=== PATIENT | female | born 1995 | race Hispanic/Latino ===

== ENCOUNTER 2017-01-30 21:22 | Emergency (ER) | payer SELFPAY ==
[~2017-01-30] VITALS: Ht 152.4 cm; Wt 62.3 kg
[2017-01-30 21:32] VITALS: BP 116/70; PULSE 70; RESP 18; O2SAT 100
--- NOTE | 2017-01-30 22:37 | ED.REPORT ---
HPI-Extremity Problem Upper Date of Service Jan 30, 2017 ED Provider: Agustín Schneider MD The pt is a 21 y/o female presenting to the ED due to a R hand trauma yesterday. She was working on her car and dropped the odell on her R hand. The pt has not taken any ibuprofen for the pain. Denies numbness tingling or other injury. Nursing Notes Stated Complaint: RIGHT HAND INJURY Chief Complaint: Extremity Trauma Nursing Notes Reviewed: Yes Allergies: Coded Allergies: Penicillins (Verified Allergy, Unknown, 01/30/17) amoxicillin trihydrate (Verified Allergy, Unknown, 01/30/17) Scheduled PRN Ibuprofen (Ibuprofen) 400 Mg Tablet 400 MG PO QID PRN PRN For Pain General Time Seen by MD: 22:37 Chief Complaint Hand injury right Hx Obtained From: Patient Arrived By: Walk-in Onset Occurred: Yesterday Symptom Duration: Since onset Caused by: Accidental Recent Healthcare: No recent doctor visit, No recent hospitalization Similar Sx Previous: No Past Medical History Past Medical History Ruptured ovarian cyst Past Surgical History None Smoking History Never Smoker Social History Alcohol Use: Denies alcohol use Ambulatory Status Independent Review of Systems Musculoskeletal: Reports: Extremity pain (R hand ) Complete sys rev & neg: except as marked. Physical Exam Initial Vital Signs Vital Signs (First) Date Time Temp Pulse Resp B/P Pulse Ox O2 Delivery O2 Flow Rate FiO2 01/30/17 21:32 36.5 70 18 116/70 100 Room Air Initial VS: Reviewed General/Constitutional: Well-developed, Well-nourished Head / Eyes: Atraumatic, Normocephalic, PERRL ENT: Mucous membranes moist, Conjunctiva normal, No scleral icterus Neck: Supple, Non-tender, Full range of motion Respiratory: Breath sounds normal, Clear to auscultation, No respiratory distress Cardiovascular: Regular rate & rhythm, Heart sounds normal, Intact distal pulses Abdomen / GI: Soft, Non-tender Lower Extremities: Vascular intact, Neuro intact, No swelling, No tenderness Skin: Warm, Dry, No cyanosis Neurologic: Alert, Oriented, Nonfocal Psychiatric: Mood/affect normal, Behavior normal, Normal thought content Upper Extremity / MS: No deformity, Neurologic intact, Vascular intact Hematoma over the 4th dorsal IP joint of the R hand Trauma was to metacarpals 3,4,5 No tenderness of proxiaml secondary metacarpal Interpretation & Diagnostics X-Ray Interpretation X-Ray Ordered: Wrist right Interpretation / Wet Read by: Wet read ED physician Interpretation: Normal exam Re-Eval/Medical Decision Med Decision/Clinical Course 21-year-old female presents twenty-four hours out from a contusion to her hand after dropping a would have of coronary hand. No x-ray evident fracture. Vision area of ceiling growth plate at the proximal second metacarpal which is not tender clinically. All of her tenderness is over the dorsum of the fifth fourth and to some extent the third digits. Neurovascularly intact. Routine contusion care discussed. Wrist splint with Moisés to immobilize third fourth and fifth fingers. Re-Evaluation/Progress : Time of Eval: 22:50 Re-Evaluation/Progress Note: Pt rechecked. Informed pt of plan for treatment. Pt understands and agrees with plan for treatment. F/U instructions and RTER warnings given. All questions addressed. Counseled Regarding: Diagnosis, Lab results, Need for follow-up, When/why to return to ED Discharge & Departure Impression: Primary Impression: Contusion, hand Encounter type: initial encounter Laterality: right Qualified Code: S60.221A - Contusion of right hand, initial encounter Disposition: Home Discharge Condition All VS Reviewed: Yes Condition: Stable Patient Instructions: Contusions in Adults (ED) Additional Instructions: There does not appear to be any fracture in the area where your pain is located. It is best to immobilize the hand as long as his tender, and elevated whenever possible to reduce swelling. Wear the splint as long as the hand is tender. You may remove it in order to wash the hand. You may apply heating pad a few times a day to bring blood to the area and evacuate that hematoma. Follow-up with your doctor in the office. Ibuprofen four times daily as needed for pain. Referrals: [facility] [employer] Attestation Portions of this note were transcribed by Ezekiel Shah. I, Dr. Schneider personally performed the history, physical exam and medical decision-making; I reviewed and confirmed the accuracy of the information in the transcribed note. Signed by : Jeniffer West, 01/30/17 and [id number]. copies to: [facility] Agustín Schneider MD Jan 30, 2017 22:37 Ezekiel Shah Jan 30, 2017 23:10
[2017-01-30] MEDS ORDERED: IBUP400T22 PO (22:48)
--- NOTE | 2017-01-31 09:43 | DRSVH ---
PROCEDURE: X-RAY RIGHT HAND, MINIMUM THREE VIEWS ([id number]) INDICATIONS: injury TECHNIQUE: 3 views of the hand(s) acquired. COMPARISON: None. FINDINGS: Bones: No fractures or dislocations. Carpal bones are normally aligned. No suspicious bony lesions . Soft tissues: No suspicious soft tissue calcifications. IMPRESSION: No acute abnormality is seen. I do not believe the base of the second carpal has a fractu re. The irregularity is thought to correspond to the joint between the second and third metacarpal ba ses. Dictated by: Navneet Gaviria M.D. on 01/31/2017 at 9:40 this report corresponds to the emergency room physicians ER dictated note. Approved by: Navneet Gaviria M.D. on 01/31/2017 at 9:41
== END 2017-01-30 22:45 | disposition home or self-care (01) ==
LOC: SED 21:22
DX: S60.221A Contusion of right hand, initial encounter (principal); W20.8XXA Other cause of strike by thrown, projected or falling object, initial encounter; Y93.89 Activity, other specified; Y92.019 Unspecified place in single-family (private) house as the place of occurrence of the external cause; Y99.8 Other external cause status; Z88.0 Allergy status to penicillin

== ENCOUNTER 2017-03-21 11:49 | Observation (INO) | payer OTHER ==
[~2017-03-21] VITALS: Ht 152.4 cm; Wt 65.9 kg
[2017-03-21] VITALS (14 sets, daily range): BP systolic 88–135; BP diastolic 49–82; PULSE 62–80; RESP 12–22; O2SAT 97–100
[~2017-03-21 11:49] MED LIST: Dexamethasone 4 mg/mL Inj ONE; Glycopyrrolate 0.2 MG/ML 1mL Inj ONE; IBUP400T22 PO; MetoCLOpramide 5 mg/mL 2 mL Inj ONE; Neostigmine 1 mg/mL 10 mL Inj ONE; Phenylephrine/NS 100 mCg/mL 10 mL Syringe IVPUSH ONE; Propofol 10,000 mCg/mL 20 mL Inj ONE; Rocuronium 10 mg/mL 5 mL Inj ONE; fentaNYL-PF 50 mCg/mL 2 mL Inj ONE
[2017-03-21 13:30] LABS: BASOPHILS % (AUTO) 0.1 % (0-3); EOSINOPHILS % (AUTO) 0.2 % (0-5); Mean Corpuscular Hemoglobin 28.1 pg (27.0-35.0); Mean Corpuscular Volume 80.9 fL (81-100); Platelet Count 247 bil/L (150-400)
[2017-03-21 13:54] LABS: Magnesium 1.9 mg/dL (1.6-2.6)
--- NOTE | 2017-03-21 14:18 | ED.REPORT ---
HPI-Abd Pain F Under 40 Date of Service Mar 21, 2017 ED Provider: Dr. Sutton Pt is a generally healthy 21 y/o female w/ a hx of Von Willebrand disease, presenting to the ED c/o RLQ abdominal pain onset 3 days ago. The patient began experiencing diffuse abdominal pain 3 days ago which has gradually worsened and localized to the RLQ. She c/o associated nausea, vomiting, and constipation (3 days). Pt denies fever, dysuria, urinary frequency, vaginal discharge, back pain , flank pain, diarrhea, vaginal bleeding. She has never had surgeries. Nursing Notes Stated Complaint: STOMACH PAIN Chief Complaint: Female Abdominal Pain Nursing Notes Reviewed: Yes Allergies: Coded Allergies: Penicillins (Verified Allergy, Intermediate, Hives, 03/21/17) amoxicillin trihydrate (Verified Allergy, Intermediate, Hives, 03/21/17) Scheduled PRN Albuterol HFA (Proair HFA) 8.5 Gm Hfa.aer.ad 2 PUFFS INHALATION Q4H PRN PRN For Shortness of Breath Ibuprofen (Ibuprofen) 400 Mg Tablet 400 MG PO QID PRN PRN For Pain General Time Seen by MD: 14:17 Chief Complaint Abdominal pain Hx Obtained From: Patient Arrived By: Walk-in Sudden in Onset?: No Onset Occurred: 3 days ago Symptom Duration: Since onset Progression since Onset: Gradually worsening Location: : Diffuse: RLQ Quality: Painful Radiation: : Does not radiate Severity: Current: Moderate Severity: Maximum: Moderate Recent Healthcare: No recent hospitalization Similar Sx Previous: No Past Medical History Past Medical History Von Willebrand disease Asthma Ruptured ovarian cyst Past Surgical History None Smoking History Never Smoker Social History Alcohol Use: Denies alcohol use Ambulatory Status Independent Review of Systems Constitutional: Denies: Chills, Fever Respiratory: Denies: Non-productive cough, Shortness of breath Cardiovascular: Denies: Chest pain GI: Reports: Abdominal pain, Constipation, Nausea, Vomiting, Denies: Diarrhea Female: Denies: Dysuria, Flank pain, Urinary frequency, Vaginal bleeding - abnl, Vaginal discharge Musculoskeletal: Denies: Back pain Complete sys rev & neg: except as marked. Physical Exam Initial Vital Signs Vital Signs (First) Date Time Temp Pulse Resp B/P Pulse Ox O2 Delivery O2 Flow Rate FiO2 03/21/17 12:02 37.6 73 14 123/75 100 Room Air Initial VS: Reviewed, Vital signs normal Head / Eyes: Atraumatic, Normocephalic ENT: Mucous membranes moist, Conjunctiva normal Neck: Full range of motion Extremities: Vascular intact, Neuro intact, No swelling Skin: Warm, Dry, No cyanosis Neurologic: Alert, Oriented, Nonfocal Psychiatric: Mood/affect normal, Behavior normal, Normal thought content General/Constitutional: Awake, Alert, Cooperative, Not toxic appearing Distress / Hydration: Positive: Distress moderate Appearance / Presentation: Positive: In pain, Uncomfortable Respiratory / Chest: Breath sounds NL, Breath sounds = bilat, No respiratory distress, No rales, No rhonchi, No wheezing, No retractions, No stridor Cardiovascular: Heart rate NL, Regular rhythm, Heart sounds NL, No gallop, No murmurs, No rubs, Cap refill not delayed, Peripheral circulation NL, Pulses = bilaterally Abdomen: Atraumatic, Soft, No guarding, No rebound, No distention, No palpable mass Tenderness/Guarding/Rebound: Positive: McBurney's point tender, Tender RLQ... ( Moderate) Back: Full range of motion, Painless range of motion Interpretation & Diagnostics Lab Results Interpretation Result Diagram: 03/21/17 1320 03/21/17 1320 Test 03/21/17 13:20 03/21/17 15:13 White Blood Count 18.0th/mm3 (3.8-10.1) Red Blood Count 5.19mil/mm3 (3.90-5.20) Hemoglobin 14.6g/dL (12.0-15.6) Hematocrit 42.0% (35.0-46.0) Mean Corpuscular Volume 80.9fL (81-100) Mean Corpuscular Hemoglobin 28.1pg (27.0-35.0) Mean Corpuscular Hemoglobin Concent 34.8% (32.0-37.0) Red Cell Distribution Width 13.0% (12.3-15.4) Platelet Count 247bil/L (150-400) Neutrophils (%) (Auto) 85.0% (40-74) Lymphocytes (%) (Auto) 9.5% (14-46) Monocytes (%) (Auto) 5.0% (4-12) Eosinophils (%) (Auto) 0.2% (0-5) Basophils (%) (Auto) 0.1% (0-3) Sodium Level 136mEq/L (134-144) Potassium Level 3.7mEq/L (3.5-5.2) Chloride Level 97mEq/L (97-108) Carbon Dioxide Level 22mmol/L (18-29) Blood Urea Nitrogen 11mg/dL (6-20) Creatinine 0.56mg/dL (0.57-1.00) Estimat Glomerular Filtration Rate 196mL/min (>59) Glucose Level 105mg/dL (60-99) Calcium Level 9.6mg/dL (8.5-10.1) Magnesium Level 1.9mg/dL (1.6-2.6) Total Bilirubin 0.7mg/dL (0.0-1.2) Aspartate Amino Transf (AST/SGOT) 16U/L (0-50) Alanine Aminotransferase (ALT/SGPT) 13U/L (0-32) Alkaline Phosphatase 91U/L (25-150) Total Protein 8.3g/dL (6.4-8.4) Albumin 4.5g/dL (3.4-5.0) Lipase 29U/L (13-60) Hold Bolaños Top Tube Received (Received) Hold Urine Received (Received) CT Abd / Pelvis Interpretation IMPRESSION: 1. Enlarged appendix with minimal surrounding inflammation. Finding is most consistent with appendicitis and appendicolith. No evidence of perforation. The above findings were discussed with Dr. Geoffrey Sutton on 03/21/17 at 3:45 PM. Dictated by: Coni De Jesus M.D. on 03/21/2017 at 15:44 Approved by: Coni De Jesus M.D. on 03/21/2017 at 15:48 Study type: Abdominal CT IV contrast Interpretation / Wet Read by: Interpret - Radiologist, Discussed w radiologist Re-Eval/Medical Decision Med Decision/Clinical Course Med Decision/Clinical Course: Acute appendicitis will admit Re-Evaluation/Progress : Time of Eval: 15:52 Re-Evaluation/Progress Note: Pt rechecked. Informed pt of need for admission for likely surgery. Pt understands and agrees with plan for admission. All questions addressed. Consultation : Referral / Consult Name: Raudel Bates MD Consulted With: Surgeon Call Returned at: 16:00 Auto Locator: Will see patient, Agrees with eval, Agrees with plan, Accepts admit Counseled Regarding: Diagnosis, Lab results, Need for admission Discharge & Departure Primary Impression: Acute appendicitis Acute appendicitis type: unspecified acute appendicitis type Qualified Code: K35.80 - Unspecified acute appendicitis Disposition: ADMITTED TO HOSPITAL Discharge Condition All VS Reviewed: Yes Condition: Stable Referrals: NOPCP (PCP) Scribe Attestation Portions of this note were transcribed by Tre Sorto. I, Dr. Sutton personally performed the history, physical exam and medical decision-making; I reviewed and confirmed the accuracy of the information in the transcribed note. Geoffrey Sutton DO Mar 21, 2017 14:18 TRE SORTO Mar 21, 2017 14:39
[2017-03-21] MEDS ORDERED: 0.9% Sodium Chloride 1,000 ML IV ONE (14:35)
[2017-03-21] MEDS ORDERED: Ondansetron 2 mg/mL 2 mL Inj IVPUSH PRN ×4 (14:35→21:30)
[2017-03-21] MEDS: HYDROmorphone 0.5 mg/0.5 mL iSecure Syringe IVPUSH PRN ×3 (14:59→16:42)
--- NOTE | 2017-03-21 15:49 | DRSVH ---
PROCEDURE: CT ABDOMEN AND PELVIS WITH CONTRAST ([id number]) INDICATIONS: rlq pain wbc 18 TECHNIQUE: After the administration of intravenous contrast, 5 mm thick sections acquired from the diaphragm to the symphysis. 5 mm coronal and sagittal reformats were acquired. For radiation dose reduction, the following was used: automated exposure control, adjustment of mA and/or kV according to patient siz e. COMPARISON: [facility], CT, ABD/PELVIS W/CON (PNL), 08/04/2011, 3:46. [facility], [place], PELVIC SONOGRAM, 11/13/2011, 10:19. FINDINGS: Image quality: Excellent. ABDOMEN: Lung bases: Lung bases are clear. Heart size is normal. Solid organs: Liver and spleen are normal in size and enhancement. Gallbladder is unremarkable. Bi liary system is non dilated. Pancreas enhances normally. No adrenal nodules. Kidneys demonstrate n ormal size and enhancement, without hydronephrosis. Peritoneum and bowel: Bowel loops are nonobstructed. The appendix is enlarged measuring 12 mm in gre atest AP dimension. There is a very minimal appearance of surrounding inflammation as well as a punct ate appendicolith. In comparison to the 08/04/11 exam, the appendix is markedly enlarged. Trace depend ent pelvic fluid is present. Nodes and vessels: No retroperitoneal or mesenteric adenopathy by size criteria. Aorta and inferior vena cava are normal in size. Miscellaneous: No ventral hernias. PELVIS: Genitourinary: Bladder wall thickness is normal. Rim-enhancing left ovarian focus measuring 16 mm l ikely claim service representative of an involuting hemorrhagic cyst. Miscellaneous: No inguinal hernias or adenopathy. Bones: No suspicious bony lesions. No vertebral body compression fractures. IMPRESSION: 1. Enlarged appendix with minimal surrounding inflammation. Finding is most consistent with appendici tis and appendicolith. No evidence of perforation. The above findings were discussed with Dr. Geoffrey Sutton on 03/21/17 at 3:45 PM. Dictated by: Coni De Jesus M.D. on 03/21/2017 at 15:44 Approved by: Coni De Jesus M.D. on 03/21/2017 at 15:48
[2017-03-21] MEDS ORDERED: Ertapenem Inj 1,000 MG in 0.9% Sodium Chloride 50 ML IV ONE (16:20)
[2017-03-21] MEDS ORDERED: ALBU8.5H2 INHALATION (16:33)
[2017-03-21] MEDS: Lactated Ringer's 1,000 ML IV SCH ×2 (17:35→20:34)
[2017-03-21] MEDS ORDERED: Desmopressin Inj 20 MCG in 0.9% Sodium Chloride 50 ML IV ONE (18:30)
--- NOTE | 2017-03-21 19:20 | NUR ---
Arrival to Floor Patient arrives to floor from ED alert and oriented, vital signs stable. Ordered IV fluids administered. Patient states she does have some pain to the lower right quadrant. Patient denies nausea, is NPO. Ordered pain medications administered, care is ongoing.
--- NOTE | 2017-03-21 19:30 | HP ---
[address] [address] HISTORY AND PHYSICAL PATIENT: ANTONI FONTANA : 1995 MR#: [id number] ADMIT: 03/21/2017 JOB ID: [id number] CHIEF COMPLAINT: Abdominal pain. HISTORY OF PRESENT ILLNESS: The patient is a 21-year-old woman who presented to the emergency department with three days of abdominal pain. The pain was initially diffuse and gradually worsened and localized to her right lower quadrant. It has been associated with nausea and she began vomiting this morning. She has had alternating diarrhea and constipation. She denies fevers or chills. She has not had any urinary symptoms. She does have a history of von Willebrand's disease which was diagnosed after heavy menstrual periods. Following her diagnosis she underwent wisdom tooth extraction which was not complicated by bleeding. PAST MEDICAL HISTORY: Von Willebrand disease, asthma, ovarian cyst. PAST SURGICAL HISTORY: Circle tooth extraction. MEDICATIONS: Albuterol, ibuprofen. ALLERGIES: PENICILLIN AND AMOXICILLIN. SOCIAL HISTORY: She has never smoked. Denies significant alcohol use or illicit drug use. She works as a admin secretary. FAMILY HISTORY: No family history of bleeding disorders or inflammatory bowel disease. REVIEW OF SYSTEMS: A 10-point review of systems is negative except as described in the history of present illness. Specifically, she denies blood in her stool, unplanned weight loss. PHYSICAL EXAMINATION: Body mass index 28.4, temperature 36.9, pulse 69, blood pressure 88/49, saturation 100% on room air. In general, she is resting in bed in no acute distress. HEENT: Sclerae are anicteric. Mucous membranes are moist. Neck: No lymphadenopathy. Chest: Clear to auscultation bilaterally. Heart: Regular rate and rhythm. No murmurs. Abdomen: Nondistended. She does have fairly severe focal tenderness to palpation in the right lower quadrant with involuntary guarding and rebound tenderness. There are no palpable masses. Extremities: No edema. Neuro: No deficits. Psychiatric: Affect is appropriate. LABORATORIES: White count is 18.0, hematocrit 42.0, platelets 247. Creatinine 0.56, glucose 105, albumin 4.5. Urinalysis has not been done. IMAGING: CT scan of the abdomen and pelvis with contrast shows a distended appendix measuring 12 mm with an appendicolith and some minimal surrounding inflammatory change. There is trace dependent pelvic fluid. Findings are consistent with appendicitis without evidence of perforation. ASSESSMENT AND PLAN: A 21-year-old woman with von Willebrand's disease with acute appendicitis. The pathophysiology of appendicitis was discussed with the patient. She will be admitted to the hospital with plans to take her to surgery this evening for laparoscopic appendectomy. Technical aspects of surgery were discussed. Risks of surgery were discussed, including but not limited to bleeding, infection, injury to other structures, conversion to open surgery. She understands that her von Willebrand disease adds significant complexity to her overall care. I have ordered a single dose of DDAVP to be given preoperatively. She was given a single dose of ertapenem in the emergency department. Postoperative management was discussed, to be dependent upon operative findings regarding perforation of the appendix or not. All her questions were answered. Informed consent was obtained.
--- NOTE | 2017-03-21 19:59 | NUR ---
REPORT; called to [place], or nurse. inbound call center representative rx taped to chart. Iv saline locked.
--- NOTE | 2017-03-21 20:02 | NUR ---
BELONGINGS; removed except for her glasses. PAIN; Pt states pain is 5/10.
--- NOTE | 2017-03-21 20:42 | NUR ---
TO OR; approx 2029 via [employer]. No belongings taken with pt.
[2017-03-21] MEDS ORDERED: EPHEDrine Sulfate 50 mg/mL Inj IVPUSH PRN (20:50)
[2017-03-21] MEDS ORDERED: Lactated Ringer's 500 ML IV PRN (20:50)
[2017-03-21] MEDS ORDERED: Phenylephrine 10,000 mCg/mL Inj IVPUSH PRN (20:50)
[2017-03-21] MEDS ORDERED: HYDROmorphone 1 mg/mL Inj IVPUSH PRN (20:50)
[2017-03-21] MEDS ORDERED: Lactated Ringer's 1,000 ML IV SCH (20:50)
[2017-03-21] MEDS ORDERED: Dexamethasone 4 mg/mL Inj IVPUSH PRN (20:50)
[2017-03-21] MEDS ORDERED: MetoCLOpramide 5 mg/mL 2 mL Inj IVPUSH PRN ×2 (20:50→21:30)
--- NOTE | 2017-03-21 20:50 | PCM.HPANE ---
Patient Data Surgeon Admitting Provider:Raudel Bates MD Attending Provider:Raudel Bates MD Primary Care Physician:Nopcp Other Provider: Reason for Visit Acute Appy Ht/WT & BMI Height (Feet): 5 Height (Inches): 0 Weight (Kilograms): 65.91 Body Mass Index Allergies Coded Allergies: Penicillins (Verified Allergy, Intermediate, Hives, 03/21/17) amoxicillin trihydrate (Verified Allergy, Intermediate, Hives, 03/21/17) Past Anesthesia History Anesthesia History: Denies:: Abnormal Airway, Anesthesia Reactions, Difficult Intubation, Fam Anesthesia Reaction, Fam Malignant Hypertherm, Malignant Hyperthermia Diabetes History Hx Diabetes?: No MRSA MRSA: No Medications Active Scripts Ibuprofen 400 Mg [id number] Mg PO QID PRN For Pain #60 TABLET Ref 0 Prov:Agustín Schneider MD 01/30/17 Reported Medications Albuterol HFA (Proair HFA)8.5 Gm Hfa.aer.ad2 Puffs INHALATION Q4H PRN For Shortness of Breath #1 INHALER 03/21/17 History History of ENT Problems?: No HEENT History: Denies:: Abnormal Airway Cataracts Difficult Intubation Dysphagia Glaucoma Hearing Problem Sinus Problem TMJ Denture Type: None Teeth Condition: Within Normal Limits Hx of Heart Problems?: No Cardiovascular History: Denies:: AICD Abdominal Aortic Aneurism Atrial Fibrillation Cardiac Surgery Chest Pain Congestive Heart Failure Coronary Artery Disease Edema Heart Murmur Hypertension Irregular Heartbeat Pacemaker Peripheral Vascular Rheumatic Fever Thrombophlebitis Valvular Heart Disease Hx of Respiratory Problem?: Yes Respiratory History: Positive for:: Asthma Denies:: COPD Chest Surgery Dyspnea Emphysema Pneumonia Tuberculosis Hx Neurologic Problems?: No Neurological History: Denies:: Alzheimer's Disease CVA Dizziness Headaches Parkinson's Disease Seizures Hx of GI Problems?: Yes Other GI Pertinent History: cyst in ovary errupted few years ago Hx of Problems?: No Genitourinary History: Denies:: HX of Hemodialysis Kidney Stones Urinary Tract Infection HX of Peritoneal Dialysis: No Female Hx: Denies:: Currently Hx Musculoskeletal Problems?: No Musculoskeletal History: Positive for:: Back Injury (Myleoscolosis ) Denies:: Joint Replacement Hx of Psycho/Social Problems?: No Psycho Social History: Positive for:: Suicide Attempt (when i was [age] and received counceling) Denies:: Anxiety Bipolar Disorder Hx Depression Hx Surgeries?: No (wisdom extraction in 2011) Hx Any Other Health Problems?: No Other History: Denies:: Cancer Hospitalization Thyroid Disease History Blood Transfusions: Positive for:: Accept Blood Products? Denies:: Blood Transfusions Hx Diabetes: No Hx Alcohol Use: Yes (occ)Hx Substance Use: No Smoking Status: Never Smoker Have You Smoked inLast 12 mo: Yes (2 cig) Stop/Bang Treated for Sleep Apnea?: No Do You Have a CPAP Machine?: No S-Snoring: Do You Snore Loudly: No T-Tired: feel tired, fatigued: No O-Obsered: Observed not breath: No P-Blood Pressure: treated: No B- Body Mass Index > 35 kg/m2: No A- Age over 50: No N- Neck Large Circumference: No G- Gender Male: No HANS Total Score: 0 Risk Assessment Category Category 1A: Patient has history of documented sleep apnea, and HAS NOT received any narcotic, sedative or anesthesia administration during this stay. Category 1B: Patient has history of documented sleep apnea, and HAS received any narcotic , sedative or anesthesia administration during this stay Category 2: Patient has SUSPECTED Obstructive Sleep Apnea, and HAS received any narcotic , sedative or anesthesia administration during this stay. Category 3: Patient has SUSPECTED Obstructive Sleep Apnea and HAS NOT received narcotic, sedative or anesthesia administration during this stay. Category 4: Outpatient in Procedural Areas with known sleep apnea or who screen positive for High Risk via the STOP/BANG questionnaire. Exam Exam Vital Signs Vital Signs Date Time Temp Pulse Resp B/P Pulse Ox O2 Delivery O2 Flow Rate FiO2 03/21/17 17:14 36.9 69 18 88/49 100 Room Air 03/21/17 17:00 36.4 72 16 115/62 97 Room Air 03/21/17 16:58 36.4 72 16 115/62 97 Room Air 03/21/17 12:02 37.6 73 14 123/75 100 Room Air General Appearance: Alert, Oriented X3, Cooperative, No Acute Distress HEENT/AIRWAY: MP 1 Lungs: Clear to Auscultation Heart: Exam Unremarkable Meds/Labs/Diagnostics Admission Meds Current Medications Sodium Chloride 1,000 ml @ 0 mls/hr Q0M ONCE IV Last administered on 03/21/17t 14:59; Start 03/21/17 at 14:35; Stop 03/21/17 at 14:37; Status DC Lactated Ringer's 1,000 ml @ 100 mls/hr Q10H IV Last administered on 03/21/17 17:35; Start 03/21/17 at 16:03 Ertapenem/Sodium Chloride (INVanz Inj/ Normal Saline) 50 ml @ 100 mls/hr ONCE ONCE IV Last administered on 03/21/17 16:43; Start 03/21/17 at 16:20; Stop at 16:49; Status DC Labs Test 03/21/17 13:20 03/21/17 15:13 White Blood Count 18.0th/mm3 (3.8-10.1) Red Blood Count 5.19mil/mm3 (3.90-5.20) Hemoglobin 14.6g/dL (12.0-15.6) Hematocrit 42.0% (35.0-46.0) Mean Corpuscular Volume 80.9fL (81-100) Mean Corpuscular Hemoglobin 28.1pg (27.0-35.0) Mean Corpuscular Hemoglobin Concent 34.8% (32.0-37.0) Red Cell Distribution Width 13.0% (12.3-15.4) Platelet Count 247bil/L (150-400) Neutrophils (%) (Auto) 85.0% (40-74) Lymphocytes (%) (Auto) 9.5% (14-46) Monocytes (%) (Auto) 5.0% (4-12) Eosinophils (%) (Auto) 0.2% (0-5) Basophils (%) (Auto) 0.1% (0-3) Sodium Level 136mEq/L (134-144) Potassium Level 3.7mEq/L (3.5-5.2) Chloride Level 97mEq/L (97-108) Carbon Dioxide Level 22mmol/L (18-29) Blood Urea Nitrogen 11mg/dL (6-20) Creatinine 0.56mg/dL (0.57-1.00) Estimat Glomerular Filtration Rate 196mL/min (>59) Glucose Level 105mg/dL (60-99) Calcium Level 9.6mg/dL (8.5-10.1) Magnesium Level 1.9mg/dL (1.6-2.6) Total Bilirubin 0.7mg/dL (0.0-1.2) Aspartate Amino Transf (AST/SGOT) 16U/L (0-50) Alanine Aminotransferase (ALT/SGPT) 13U/L (0-32) Alkaline Phosphatase 91U/L (25-150) Total Protein 8.3g/dL (6.4-8.4) Albumin 4.5g/dL (3.4-5.0) Lipase 29U/L (13-60) Hold Bolaños Top Tube Received (Received) Hold Urine Received (Received) Plan Impression Patient chart reviewed, patient interviewed and anesthestic plan with risks, benefits, and alternatives discussed, and informed consent obtained. ASA Physical Status: ASA2 Mod Systemic Disease Anesthetic Plan: GA Bene/Risks/Altern/Consents: Yes HP Complete Prior to Induction: Yes Samson Rodriguez MD Mar 21, 2017 18:12
[2017-03-21] MEDS ORDERED: Bupivacaine-MPF 0.5% 30 mL Inj INFILTRATE ONE (21:11)
[2017-03-21] MEDS ORDERED: Sodium Chloride LOK Flush 10 mL Syringe IVFLUSH PRN (21:30)
--- NOTE | 2017-03-21 21:32 | PCM.SURGOP ---
Surgical Operative Report Date of Service: Mar 21, 2017 Pre Operative Diagnosis Acute appendicitis Post Operative Diagnosis Same, nonperforated Procedure: Laparoscopic appendectomy Surgeon and Airline Counter Agent: Surgeon: Raudel Bates MD Assistants: Vinod Whaley PA-C Indication for Procedure 21-year-old woman who presented to the emergency department with 3 days of abdominal pain localizing to her right lower quadrant with vomiting. White blood cell count was 18. She had a CT scan of the abdomen and pelvis which demonstrated a 12 mm appendix with an appendicolith, and evidence of appendicitis. She also has von Willebrand disease, so a single dose of desmopressin was given preoperatively. After discussion of risks and benefits, she agreed to proceed with laparoscopic appendectomy. Findings: There was acute appendicitis, but no evidence of perforation. Procedure Details After smooth induction of general anesthesia, the patient was placed in the supine position with the left arm tucked. The abdomen was prepped and draped in wide sterile fashion. A procedural pause was performed according to the SCOAP checklist, and all were found to be in agreement. A curvilinear infraumbilical incision was made. Dissection was carried down with electrocautery until the midline fascia was incised vertically and the peritoneal cavity was entered without difficulty. Pneumoperitoneum was established. Two additional ports were placed under visualization. A 5 mm port was placed in the midline above the symphysis pubis, and a 12 mm port in the left lower quadrant, lateral to the inferior epigastric vessels. The patient was placed head down with the right side up. The small bowel was retracted. The greater omentum was retracted. The appendix was visualized, which was indurated but nonruptured. There was a small amount of clear free fluid in the pelvis. The appendix was bluntly mobilized and retracted. A window was created at the base of the appendix in the mesoappendix. The appendiceal artery was controlled with clips 2. The appendiceal stump was then divided using an Endo ASTON stapler with a 45 mm blue load. The appendix was placed into an Endo Catch bag. The right lower quadrant was irrigated and suctioned. The appendiceal stump was intact and the mesoappendix was hemostatic. The appendix was removed and passed off the field for permanent pathology. The 12 mm port was removed. The fascia of the 12 mm port site was closed using an inlet closure device with an 0 Vicryl suture. The remaining ports were removed under visualization and pneumoperitoneum was released. The skin incisions were closed using running 4-0 Monocryl subcutaneous stitches. Steri-Strips and sterile dressings were applied. At the end of the case all needle and sponge counts were correct 2. The patient was awakened from anesthesia without difficulty, and taken to the recovery room in satisfactory condition, having tolerated the procedure well. Complications There were no periprocedural complications identified. Surgical Specimen Removed: Yes Specimen sent to Pathology: Yes Surgical Specimen description: Appendix Anesthetic Plan: GA Grafts, Implants: None Output, Estimated Blood Loss: 20 Blood Administration during simms: No Drains: None Catheters: None Raudel Btaes MD Mar 21, 2017 21:32
[2017-03-21] MEDS: fentaNYL-PF 50 mCg/mL 2 mL Inj IVPUSH PRN ×4 (21:47→22:04)
--- NOTE | 2017-03-21 21:55 | PCM.ANEP1 ---
Post Anesthesia PACU Phase 1 Assessment Vital Signs Vital Signs Date Time Temp Pulse Resp B/P Pulse Ox O2 Delivery O2 Flow Rate FiO2 03/21/17 19:50 36.8 80 18 104/67 100 Room Air 03/21/17 17:14 36.9 69 18 88/49 100 Room Air 03/21/17 17:00 36.4 72 16 115/62 97 Room Air 03/21/17 16:58 36.4 72 16 115/62 97 Room Air Anesthetic Administered: GA Level of Alertness: Sleepy, easy to arouse Pain: Yes (RN IN ROOM) Pain Scale Score: 6 Nausea or Vomiting: No CV Function & Hydration Stable: Yes Airway Device: Oxygen Delivery: Room Air Lungs: Clear to Auscultation PACU Phase 2 Assessment Complications: No Patient Instructions Provided: N/A Samson Rodrgiuez MD Mar 21, 2017 21:55
--- NOTE | 2017-03-21 22:37 | NUR ---
POST OP; returned to room 1027 vis nesha from [facility] at approx. 2215. Pt states slight nausea from transport from [facility]. Sleepy. Family in the room.
--- NOTE | 2017-03-22 00:04 | NUR ---
PAIN/GI; eating ice cream friend brought in. No c/o nausea. Small amount blood on umbilical bandaide site. Oxycodone 10mg given for c/o 01/26 pain.
[2017-03-22 04:08] VITALS: BP 97/51; PULSE 61; RESP 16; O2SAT 98
--- NOTE | 2017-03-22 06:15 | NUR ---
PAIN; slept well during the night after pain rx given. Voided qs clear víctor urine per bathroom.
[2017-03-22 06:51] LABS: Mean Corpuscular Hemoglobin 27.6 pg (27.0-35.0); Mean Corpuscular Volume 82.9 fL (81-100)
[2017-03-22] MEDS ORDERED: POLY17PO6 PO (08:01)
[2017-03-22] MEDS ORDERED: OXYC5TAB72 PO (08:01)
--- NOTE | 2017-03-22 08:01 | PCM.DISURG ---
Surgical Discharge Instruction Date of Service Mar 22, 2017 Dates of Hospitalization Date of Hospital Admission Mar 21, 2017 at 16:24 Providers Admitting Physician: Raudel Bates MD Primary Care Physician: Nopcp Attending Physician: aRudel Bates MD Discharge Diagnosis Discharge Diagnosis acute appendicitis Post Operative diagnosis Von Willibrand disease Diet Discharge Diet: No restrictions Activity Discharge Activity-General: Activity as pain allows, No lifting >15 pounds for 2 weeks Dressing and Incisional Care Dressing Care: Allow Steri Stripes to fall off, Remove outer dressing after 24 hrs Hygiene: May shower Follow Up Plan Follow Up Plan in the General Surgery [facility] postop clinic in 2 weeks. Call your provider for: Fever (over 101.5F), Vomiting, Discharge @ incision, pus discharge Raudel Bates MD Mar 22, 2017 08:01
--- NOTE | 2017-03-22 08:19 | NUR ---
Social Work: Screening/Readiness for Discharge D: EMR reviewed. Pt is a 21 y/o female admitted [facility] - readmit score not assigned - for acute appendicitis per H&P. Pt's insurance is [employer]. Pt does not have a PCP listed - SW will follow-up with pt regarding PCP. Pt's NOK is mother Roxanne Oakes [phone]. Pt lives at home in [place]. SW screened pt's EMR - pt does not screen in for full assessment. SW will discuss pt in multidisciplinary rounds for potential discharge planning needs. No anticipated discharge needs at this time, no MD orders received. SW will continue to follow for needs. A: Pt who is independent at baseline. P: Pt anticipated to discharge home. Pt arrived to ER via public transport. SW to meet with pt regarding PCP, transport home, and DPOA/advanced directive ppw. SW will discuss pt in multidisciplinary rounds for potential discharge planning needs. No anticipated discharge needs at this time, no MD orders received. SW will continue to follow for needs. BROOKE Harmon
[2017-03-22] MEDS ORDERED: Polyethylene Glycol (PEG) 17 Gm Powder PO SCH (08:30)
[2017-03-22 09:19] VITALS: BP 109/65; PULSE 66; RESP 20; O2SAT 99
--- NOTE | 2017-03-22 10:20 | PROG NOTE ---
[address] [address] PROGRESS NOTE PATIENT: ANTONI FONTANA : 1995 MR#: [id number] ADMIT: 03/21/2017 JOB ID: [id number] DATE: 03/22/2017 SUBJECTIVE: The patient is seen in followup. She is doing well. She has no nausea. Her pain is well controlled. She is urinating without difficulty. OBJECTIVE: Temperature 36.4, pulse 61, blood pressure 97/51, saturation 98% on room air. General, she is resting in bed in no acute distress. Chest is clear. Heart regular rate and rhythm, no murmurs. Abdomen is soft, nontender, nondistended. Her incisions are clean with no erythema, no ecchymosis. LABORATORIES: White count is 12.1, hematocrit 35.4. ASSESSMENT AND PLAN: A 21-year-old woman with von Willebrand's disease and acute appendicitis, postoperative day one status post laparoscopic appendectomy for acute non-perforated appendicitis. She is doing well. She will be discharged to home today. She can follow up in General Surgery with the PA clinic in approximately two weeks.
--- NOTE | 2017-03-22 11:00 | NUR ---
discharged home with friend driving. eating/drinking adequately, ambulating, VSS, denies nausea, pain controlled with Oxycodone, abd soft, will have f/u appt with Dr Jana LOPEZ in 2 weeks. Went over discharge instructions and pt was able to reaffirm instructions
--- NOTE | 2017-03-22 11:12 | NUR ---
Social Work: Discharge/Multidisciplinary Rounds D: EMR reviewed. Pt is on day 1 of hospitalization. Pt discussed in multidisciplinary rounds and is medically stable for discharge home today - no SW needs identified, no MD orders received. SW met with pt at bedside to discuss PCP follow-up, transport home, and DPOA/advanced directive ppw. SW confirmed pt does not have a PCP at this time. SW explained that pt can schedule a follow-up appointment at [facility] and provided phone number and address to [facility]. SW explained that [facility] is closed on the weekends and pt can call to schedule an appointment tomorrow - pt agreeable. SW asked if pt had any questions/concerns regarding discharge. Pt declined and stated she was ready to go home. Pt stated her friend Bryanna (sitting by pt at bedside) will provide transport home today and stay with her for the next couple of days while she recovers. Pt states her mother is also available for support. SW provided DPOA/advanced directive ppw and encouraged pt to return a copy to the hospital once complete. Pt agreeable. A: Pt who is independent at baseline. P: Pt to discharge home today with friend Bryanna via POV. SW explained pt can schedule a follow-up appointment at [facility] and provided phone number and address to [facility]. SW explained [facility] is closed on the weekends and pt can call to schedule an appointment tomorrow - pt agreeable. Pt stated her friend Bryanna (sitting by pt at bedside) will provide transport home today and stay with her for the next couple of days while she recovers. Pt states her mother is also available for support. No SW needs identified, no MD orders received. BROOKE Harmon
--- NOTE | 2017-03-23 18:48 | PCM.DC.SUR ---
Discharge Summary Date of Service: Date of Hospital Admission: Mar 21, 2017 at 16:24 Date of Operation(s): 03/21/2017 Date of Discharge: 03/22/2017 Diagnosis at Time of Discharge Primary diagnoses: Acute nonperforated appendicitis Other chronic conditions: 1. Von Willebrand disease 2. asthma 3. ovarian cyst. Problems: Operation Laparoscopic appendectomy Brief History and Physical: The patient is a 21-year-old woman who presented to the emergency department with 3 days of abdominal pain localizing to her right lower quadrant with vomiting. White blood cell count was 18. She had a CT scan of the abdomen and pelvis which demonstrated a 12 mm appendix with an appendicolith, and evidence of appendicitis. She also had von Willebrand disease, so a single dose of desmopressin was given preoperatively. Consultants: None Hospital Course: The patient was admitted and underwent the above-mentioned operation without complication. She was stable for discharge the following morning. Pathology: Pending Disposition: The patient was discharged to home on her first postsurgical day. At the time of discharge she had no nausea, she was afebrile, and her incisions were dry and intact. Follow-up Plan: She will follow-up in the surgical PA clinic in 2 weeks. Albuterol HFA (Proair HFA) 8.5 Gm Hfa.aer.ad 2 PUFFS INHALATION Q4H PRN PRN For Shortness of Breath (Reported) Ibuprofen (Ibuprofen) 400 Mg Tablet 400 MG PO QID PRN PRN For Pain Polyethylene Glycol 3350 (Miralax) 17 Gm Powd.pack 17 GM PO DAILY oxyCODONE (oxyCODONE) 5 Mg Tablet 5-10 MG PO Q4H PRN PRN For Pain Vinod Whaley PA-C Mar 23, 2017 18:48
--- NOTE | 2017-03-26 13:39 | PATH ---
SURGICAL PATHOLOGY Attending Physician:Marie Galicia CASE STATUS: Signed Out PATIENT NAME: BERNA FONTANA PID: [id number] : 1995 DATE COLLECTED:03/21/2017 00:00 SPECIMEN: Appendix CLINICAL HISTORY: APPENDICITIS 1). APPENDIX FINAL DIAGNOSIS: 1.APPENDIX, APPENDECTOMY: ACUTE APPENDICITIS WITH SEROSITIS. ICD10 K35.80 GROSS DESCRIPTION: The specimen is received in one formalin filled container labeled with the patient's name, sublabeled appendix" and consists of one firm johansen appendix measuring 5.0 x 0.8 x 0.8 CM. The serosal surface is light johansen, smooth and glistening. There is a large amount of attached fatty tissue. Sectioning reveals the wall to be thickened to 0.2-0.3 CM. The lumen contains a light johansen-brown friable material. Rep. sections including the tip (sectioned longitudinally), proximal margin (inked blue), and random cross-sections are submitted in one cassette. 03/24/2017DC MICRO DESCRIPTION: See diagnosis. ICD-9 CODES: CPT CODES: 1: 59369 Electronically Signed Out Ronnell Lin MD [facility] [address], [place] [address] Technical component performed at [facility], [facility] [address], [place], [address]
== END 2017-03-22 11:44 | disposition home or self-care (01) ==
LOC: SED 11:49 → OSC 16:24
PROVIDERS: ADMIT Student in an Organized Health Care Education/Training Program; ATTEND Student in an Organized Health Care Education/Training Program
DX: K35.80 Unspecified acute appendicitis (principal); D68.0 Von Willebrand disease; J45.909 Unspecified asthma, uncomplicated; N83.209 Unspecified ovarian cyst, unspecified side; Z79.51 Long term (current) use of inhaled steroids